=== PATIENT | male | born 1960 | race American Indian/Alaskan Native ===

== ENCOUNTER 2020-03-03 01:32 | Emergency (ER) | payer OTHER ==
[2020-03-03 01:54] VITALS: BP 145/100
[2020-03-03] MEDS ORDERED: ACETAMINOPHEN 325 MG TAB PO ONE (03:03)
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
== END 2020-03-03 05:41 | disposition home or self-care (01) ==
LOC: ED 01:32
DX: S09.90XA Unspecified injury of head, initial encounter (principal); I10 Essential (primary) hypertension; E11.9 Type 2 diabetes mellitus without complications; Z79.899 Other long term (current) drug therapy; V49.49XA Driver injured in collision with other motor vehicles in traffic accident, initial encounter; Y93.89 Activity, other specified; Y92.488 Other paved roadways as the place of occurrence of the external cause; Y99.8 Other external cause status
CPT/HCPCS: 70450